=== PATIENT | male | born 1980 | race Caucasian/White ===

== ENCOUNTER 2024-09-20 07:02 | Outpatient (CLI) | payer BC, SELFPAY ==
--- NOTE | ~2024-09-20 | XR_ITS ---
XR shoulder LT min 2V 09/20/2024 07:29 Indication: Left shoulder pain Procedure: 4 views left shoulder Comparison: No prior studies for comparison. Findings: Mild osteoarthritis of the acromioclavicular joint. No fracture or traumatic malalignment. No soft tissue abnormality. No foreign bodies. Impression: 1: Mild osteoarthritis of the left acromioclavicular joint. Reviewed, dictated and finalized at location A. Impression: 1: Mild osteoarthritis of the left acromioclavicular joint.
== END 2024-09-20 07:03 | disposition home or self-care (01) ==
PROVIDERS: PCP Nurse Practitioner; Visit Provider Nurse Practitioner
DX: M19.012 Primary osteoarthritis, left shoulder (principal)
CPT/HCPCS: 73030